=== PATIENT | female | born 1990 | race Caucasian/White ===

== ENCOUNTER 2016-08-10 16:37 | Emergency (ER) | payer MEDICAID ==
--- NOTE | 2016-08-10 16:54 | ER Document Report ---
ED Medical Screen (RME) - General Stated Complaint: VOMITING,ABDOMINAL PAIN Time seen by provider: 16:49 Mode of Arrival: Ambulatory Information source: Patient Notes: 26-year-old female that is 19 weeks started vomiting 4 since 7 AM, felt gas like pain 4 hours after eating at home, the mushrooms smelled funny. did not get sick. No diarrhea. Pain is epigastric and lower pelvis. No dysuria. No fever or chills. She does not think this vomiting is related to the . Cholecystectomy 3 years ago. Some low back discomfort. TRAVEL OUTSIDE OF THE [place] IN LAST 30 DAYS: No - Related Data Allergies/Adverse Reactions: No Known Allergies Allergy (Unverified 05/12/13 23:39) Past Medical History Neurological Medical History: Reports: Hx Seizures GI Medical History: Reports: Hx Gastroesophageal Reflux Disease Past Surgical History: Denies: Hx Hysterectomy - Immunizations Hx Diphtheria, Pertussis, Tetanus Vaccination: Yes Physical Exam - Vital signs Vitals: Temp Pulse Resp BP Pulse Ox 97.8 F 100 20 126/70 H 100 08/10/16 16:45 08/10/16 16:45 08/10/16 16:45 08/10/16 16:45 08/10/16 16:45 Course - Vital Signs Vital signs: Temp Pulse Resp BP Pulse Ox 97.8 F 100 20 126/70 H 100 08/10/16 16:45 08/10/16 16:45 08/10/16 16:45 08/10/16 16:45 08/10/16 16:45
[2016-08-10] MEDS ORDERED: NORMAL SALINE 1000 ML 1,000 ML IV ONE (16:55)
[2016-08-10] MEDS ORDERED: METOCLOPRAMIDE HCL INJ/PF 10 MG/2 ML SDV IV ONE ×2 (16:55→19:42)
[2016-08-10] MEDS ORDERED: DIPHENHYDRAMINE HCL 50 MG/ML VIAL IV ONE ×2 (16:55→19:42)
--- NOTE | 2016-08-10 18:10 | ER Document Report ---
ED GI/ - General Chief Complaint: Nausea/Vomiting Stated Complaint: VOMITING,ABDOMINAL PAIN Time seen by provider: 18:08 Mode of Arrival: Ambulatory Information source: Patient Notes: This is a 26-year-old female 4 para 1, 2 miscarriages, 19 weeks . She presents to the emergency room with several episodes of nausea and vomiting since 7 AM. Patient states she last ate last night. She denies any abdominal pain. She denies fever, chills, cough. The patient does state she's got some mild abdominal cramping. TRAVEL OUTSIDE OF THE [place] IN LAST 30 DAYS: No - HPI Patient complains to provider of: Onset: This morning Timing/Duration: Gradual Quality of pain: Cramping Severity at maximum: Mild Severity in ED: Mild Pain Level: Denies Context: Location: No: Chest pain, Epigastric, LUQ, LLQ, RUQ, RLQ, Left flank, Right flank, Low back, Suprapubic, Pelvis, Vaginal, Vulvar, Rectal, Other Vaginal bleeding (Compared to normal period): None OB ultrasound done: Yes vitamins taken: No Sexual history: Inactive Associated symptoms: denies: Chest pain, Fever, Hematuria, Shortness of breath Exacerbated by: Denies Relieved by: Denies Similar symptoms previously: Yes Recently seen / treated by doctor: Yes - Related Data Allergies/Adverse Reactions: No Known Allergies Allergy (Unverified 05/12/13 23:39) Past Medical History - General Information source: Patient - Social History Smoking Status: Never Smoker Cigarette use (# per day): No Chew tobacco use (# tins/day): No Smoking Education Provided: No Frequency of alcohol use: None Drug Abuse: None Lives with: Family Family History: None Patient has suicidal ideation: No Patient has homicidal ideation: No - Medical History Medical History: Negative GI Medical History: Reports: Hx Gastroesophageal Reflux Disease Surgical Hx: Negative Past Surgical History: Denies: Hx Hysterectomy - Immunizations Hx Diphtheria, Pertussis, Tetanus Vaccination: Yes Review of Systems - Review of Systems Constitutional: denies: Chills, Fever EENT: No symptoms reported Cardiovascular: No symptoms reported Respiratory: No symptoms reported Gastrointestinal: See HPI Genitourinary: No symptoms reported Female Genitourinary: No symptoms reported Musculoskeletal: No symptoms reported Skin: No symptoms reported Hematologic/Lymphatic: No symptoms reported Neurological/Psychological: No symptoms reported Physical Exam - Vital signs Vitals: Temp Pulse Resp BP Pulse Ox 97.8 F 100 20 126/70 H 100 08/10/16 16:45 08/10/16 16:45 08/10/16 16:45 08/10/16 16:45 08/10/16 16:45 Notes: Physical exam: GENERAL: When he 6-year-old female, alert and oriented 3, no acute distress. HEAD: Atraumatic, normocephalic. EYES: Pupils equal round and reactive to light, extraocular movements intact, sclera anicteric, conjunctiva are normal. ENT: TMs normal, nares patent, oropharynx clear without exudates. Moist mucous membranes. NECK: Normal range of motion, supple without lymphadenopathy or JVD. LUNGS: Breath sounds clear to auscultation bilaterally and equal. No wheezes rales or rhonchi. HEART: Regular rate and rhythm without murmurs, rubs or gallops. ABDOMEN: Soft, nontender, consistent with 19 weeks gestation, normoactive bowel sounds. No guarding, no rebound. No masses appreciated. EXTREMITIES: Normal range of motion, no pitting or edema. No clubbing or cyanosis. NEUROLOGICAL: Cranial nerves II through XII grossly intact. Normal speech, normal gait. PSYCH: Normal mood, normal affect. SKIN: Warm, Dry, normal turgor, no rashes or lesions noted. Course - Re-evaluation Re-evalutation: 08/10/16 23:02 Patient treated with IV fluids, IV Reglan, IV Benadryl. She was given a GI cocktail. She does feel better. She doesn't appointment with her OB doctor tomorrow. - Vital Signs Vital signs: Temp Pulse Resp BP Pulse Ox 97.8 F 100 20 126/70 H 100 08/10/16 16:45 08/10/16 16:45 08/10/16 16:45 08/10/16 16:45 08/10/16 16:45 - Laboratory Result Diagrams: 08/10/16 18:49 08/10/16 18:49 Laboratory results interpreted by me: 08/10/16 08/10/16 18:49 20:15 RDW 14.8 H Plt Count 124 L Seg Neutrophils % 90.0 H Lymphocytes % 6.8 L Monocytes % 2.5 L Urine Glucose (UA) >=500 H Urine Ketones 20 H Urine Ascorbic Acid 40 H - Diagnostic Test Radiology reviewed: Image reviewed, Reports reviewed - Ultrasound shows viable intrauterine at 19 weeks. Discharge - Discharge Clinical Impression: Hyperemesis gravidarum Condition: Stable Disposition: HOME, SELF-CARE Instructions: Antinausea Medication ([facility]), Reglan ([facility]) Additional Instructions: Recommendations: Drink small, frequent meals and advanced dilated is tolerated. Vitamin B 6 (Unisom) is sometimes good for nausea related to . Abdomen and kiki products sometimes help as well. Take the Reglan as needed for nausea. As far as her heartburn: Chema's, Rolaids, Maalox or Mylanta are acceptable. Continue with Zantac. Follow-up with your OB doctor tomorrow Return to the emergency room for worsening discomfort. Prescriptions: Metoclopramide HCl [Reglan 10 mg Tablet] 1 - 2 tab PO ASDIR PRN #25 tablet PRN Reason: Referrals: DOROTA WING MD [Primary Care Provider] - Follow up tomorrow
[2016-08-10] MEDS ORDERED: DEXTROSE 5%-NORMAL SALINE 1,000 ML IV ONE (18:36)
[2016-08-10] MEDS ORDERED: DEXTROSE 5%-1/2 NORMAL SALINE 1,000 ML IV ONE (18:37)
[2016-08-10 18:59] LABS: ABSOLUTE LYMPHOCYTES (AUTO) 0.5 10^3/uL (0.5-4.7); ABSOLUTE MONOCYTES (AUTO) 0.2 10^3/uL (0.1-1.4); BASOPHILS % (AUTO) 0.7 % (0-2); HEMATOCRIT 37.2 % (36.0-47.0); HEMOGLOBIN 12.9 g/dL (12.0-15.5); HGB HCT DIFFERENCE 1.5; LYMPHOCYTES % (AUTO) 6.8 % (13-45); MEAN CORPUSCULAR HEMOGLOBIN 29.2 pg (27.0-33.4); MEAN CORPUSCULAR HGB CONC 34.8 g/dL (32.0-36.0); MEAN CORPUSCULAR VOLUME 84 fl (80-97); MONOCYTES % (AUTO) 2.5 % (3-13); RED BLOOD COUNT 4.43 10^6/uL (3.72-5.28); RED CELL DISTRIBUTION WIDTH 14.8 % (11.5-14.0); WHITE BLOOD COUNT 6.7 10^3/uL (4.0-10.5)
[2016-08-10 19:29] LABS: ALANINE AMINOTRANSFERASE 21 U/L (9-52); ALBUMIN 3.6 g/dL (3.5-5.0); ALKALINE PHOSPHATASE 65 U/L (38-126); ANION GAP 15 (5-19); ASPARTATE AMINO TRANSFERASE 20 U/L (14-36); BILIRUBIN,TOTAL 0.7 mg/dL (0.2-1.3); BLOOD UREA NITROGEN 10 mg/dL (7-20); CALCIUM 8.7 mg/dL (8.4-10.2); CARBON DIOXIDE 22 mmol/L (22-30); CHLORIDE 103 mmol/L (98-107); CREATININE RESULT 0.52 mg/dL (0.52-1.25); GLUCOSE 87 mg/dL (75-110); POTASSIUM 3.7 mmol/L (3.6-5.0); SODIUM 139.5 mmol/L (137-145); TOTAL PROTEIN 6.5 g/dL (6.3-8.2)
[2016-08-10] MEDS ORDERED: LIDOCAINE 2% VISCOUS SOLN 20 ML UDCUP PO ONE (19:43)
[2016-08-10] MEDS ORDERED: MAG HYDROX/AL HYDROX/SIMETH SUSP 30 ML UDCUP PO ONE (19:43)
[2016-08-10 21:59] LABS: APPEARANCE,URINE SLIGHTLY-CLOUDY; BILIRUBIN,URINE NEGATIVE (NEGATIVE); GLUCOSE, URINE >=500 mg/dL (NEGATIVE); KETONES,URINE 20 mg/dL (NEGATIVE); LEUKOCYTE ESTERASE,URINE NEGATIVE (NEGATIVE); NITRITE,URINE NEGATIVE (NEGATIVE); PROTEIN,URINE NEGATIVE (NEGATIVE); URINE SPECIFIC GRAVITY 1.025; UROBILINOGEN,URINE NEGATIVE mg/dL (<2.0)
[2016-08-10] MEDS ORDERED: METOCLOPRAMIDE HCL 10 MG TABLET PO ONE (22:59)
[2016-08-10 23:06] VITALS: BP 116/67
== END 2016-08-10 23:05 | disposition home or self-care (01) ==
LOC: ER 16:37
DX: O21.0 Mild hyperemesis gravidarum (principal); Z3A.19 19 weeks gestation of pregnancy
CPT/HCPCS: 99284; 96361; 96375; 96365; 36415; 87086; 85025; 80053; 81001; 76805; J1200; J3490 ×3; J2765

== ENCOUNTER 2016-12-29 06:35 | Inpatient (IN) | payer MEDICAID ==
[2016-12-23 11:52] LABS: APPEARANCE,URINE SLIGHTLY-CLOUDY; BILIRUBIN,URINE NEGATIVE (NEGATIVE); GLUCOSE, URINE NEGATIVE (NEGATIVE); KETONES,URINE NEGATIVE (NEGATIVE); LEUKOCYTE ESTERASE,URINE NEGATIVE (NEGATIVE); NITRITE,URINE NEGATIVE (NEGATIVE); PROTEIN,URINE NEGATIVE (NEGATIVE); URINE SPECIFIC GRAVITY 1.011; UROBILINOGEN,URINE NEGATIVE mg/dL (<2.0)
[2016-12-23 11:57] LABS: ABSOLUTE LYMPHOCYTES (AUTO) 2.1 10^3/uL (0.5-4.7); ABSOLUTE MONOCYTES (AUTO) 0.6 10^3/uL (0.1-1.4); ABSOLUTE NEUT (AUTO) 5.2 10^3/uL (1.7-8.2); BASOPHILS % (AUTO) 0.3 % (0-2); EOSINOPHILS % (AUTO) 0.1 % (0-6); HEMATOCRIT 35.4 % (36.0-47.0); HEMOGLOBIN 12.1 g/dL (12.0-15.5); HGB HCT DIFFERENCE 0.9; LYMPHOCYTES % (AUTO) 26.4 % (13-45); MEAN CORPUSCULAR HEMOGLOBIN 28.2 pg (27.0-33.4); MEAN CORPUSCULAR HGB CONC 34.1 g/dL (32.0-36.0); MEAN CORPUSCULAR VOLUME 83 fl (80-97); MONOCYTES % (AUTO) 7.3 % (3-13); RED BLOOD COUNT 4.28 10^6/uL (3.72-5.28); RED CELL DISTRIBUTION WIDTH 14.5 % (11.5-14.0); SEGMENTED NEUTROPHILS % (AUTO) 65.9 % (42-78); WHITE BLOOD COUNT 7.9 10^3/uL (4.0-10.5)
[2016-12-23 12:16] LABS: URINE BARBITURATES SCREEN NEGATIVE; URINE METHADONE SCREEN NEGATIVE; URINE OPIATES LOW NEGATIVE; URINE PHENCYCLIDINE SCREEN NEGATIVE
[~2016-12-29 06:35] MED LIST: CEFAZOLIN 1 GM/D5W RTU 1 GM/50 ML RTUPB IV PRN; LACTATED RINGERS 1000 ML IV PRN; LIDOCAINE 0.5% INJ-PF (5 MG/ML) 50 ML SDV SUBCUT PRN
[2016-12-29] MEDS ORDERED: OXYTOCIN 10 UNIT/ML VIAL ONE (09:24)
[2016-12-29] MEDS ORDERED: KETOROLAC TROMETHAMINE INJ/PF 30 MG/1 ML SDV ONE (09:24)
[2016-12-29] MEDS ORDERED: FENTANYL CITRATE INJ/PF 250 MCG/5 ML AMPULE ONE (09:25)
[2016-12-29] MEDS ORDERED: EPHEDRINE SULFATE INJ 50 MG/1 ML AMPULE ONE (09:25)
[2016-12-29] MEDS ORDERED: ACETAMINOPHEN 100 ML IV ONE (09:25)
[2016-12-29] MEDS ORDERED: ONDANSETRON HCL INJ/PF 4 MG/2 ML SDV ONE ×2 (09:25→15:10)
[2016-12-29] MEDS ORDERED: OXYTOCIN/NORMAL SALINE 20 UNIT/1,000 ML RTUINJ ONE (09:25)
[2016-12-29] MEDS ORDERED: MIDAZOLAM 2 MG/2 ML INJ ONE (09:25)
[2016-12-29] MEDS ORDERED: FENTANYL CITRATE INJ/PF 100 MCG/2 ML AMPUL ONE (09:25)
[2016-12-29] MEDS ORDERED: MEASLES,MUMPS&RUBELLA VACC/PF 0.5 ML VIAL SUBCUT PRN (09:33)
[2016-12-29] MEDS ORDERED: RINGERS SOLUTION,LACTATED 1,000 ML IV PRN (09:33)
[2016-12-29] MEDS ORDERED: OXYTOCIN/NORMAL SALINE 1,000 ML IV PRN (09:33)
[2016-12-29] MEDS ORDERED: OXYCODONE-ACETAMINOPHEN 5-325 MG TABLET PO PRN (09:33)
[2016-12-29] MEDS ORDERED: HYDROMORPHONE HCL INJ/PF 2 MG/ML AMPULE IV PRN (09:33)
[2016-12-29] MEDS ORDERED: PROMETHAZINE HCL INJ 25 MG/1 ML VIAL IV PRN (09:33)
[2016-12-29] MEDS ORDERED: ACETAMINOPHEN 100 ML IV PRN (09:33)
[2016-12-29] MEDS ORDERED: ACETAMINOPHEN 325 MG TABLET PO PRN (09:33)
[2016-12-29] MEDS ORDERED: DIPH/PERTUSS(ACELL)/TETANUS VAC/PF 0.5 ML SYR (>=10YO) IM PRN (09:33)
[2016-12-29] MEDS ORDERED: FENTANYL CITRATE INJ/PF 100 MCG/2 ML AMPUL IV PRN (10:05)
[2016-12-29] MEDS ORDERED: ONDANSETRON HCL INJ/PF 4 MG/2 ML SDV IV PRN (10:05)
[2016-12-29] MEDS ORDERED: MEPERIDINE HCL/PF INJ 25 MG/1 ML DISP.SYRIN IV PRN (10:05)
[2016-12-29] MEDS ORDERED: DIPHENHYDRAMINE HCL 50 MG/ML VIAL IV PRN (10:05)
--- NOTE | 2016-12-29 10:57 | PDOC DELIVERY SUMMARY ---
Delivery Summary - Maternal Hx : IV Hx # Term Pregnancies: 1 Hx Total # of Abortions (Sponateous & Elective): 2 LUCIA: 01/05/17 Gestational Age: 39 Ruptured Membranes: AROM Fluids: Clear - Delivery Presentation: Vertex Heart Rate Monitoring: Done Pre-Operatively Support Person Present: Yes Location: LD : Scheduled Placenta: Within Normal Limits Delivery of Placenta Date: 12/29/16 Delivery of Placenta Time: 10:15 - Medications Type of Anesthesia:: Spinal - Infant Assess and Care Baby 1 Male Delivery of Date: 12/29/16 Delivery of Time: 10:14 at 1 minute: 8 at 5 minutes: 9 Preprinted Number On Band: [id number] Infant Skin to Skin: No Mode of Transport: [facility] Weight: 3675 kg - Delivery Personnel Nursery RN: TRENT ONEILL RN: MATT PERALTA RN: EVA POLANCO MD: SANDI GAMING Applications Support Analyst: ANDREW RODRIGUEZ
--- NOTE | 2016-12-29 11:03 | Operative Report ---
Operative Report DATE OF SURGERY: 12/29/16 PREOPERATIVE DIAGNOSIS: Repeat to prevent risk of uterine rupture. Right ovarian cyst POSTOPERATIVE DIAGNOSIS: Same OPERATION: Repeat via low transverse uterine incision drainage of right ovarian cyst. SURGEON: SANDI GAMING ANESTHESIA: Spinal TISSUE REMOVED OR ALTERED: Drainage of right ovarian cyst placenta, COMPLICATIONS: None ESTIMATED BLOOD LOSS: 250 cc INTRAOPERATIVE FINDINGS: Normal uterus and tubes. Simple right ovarian cyst. PROCEDURE: Patient was taken to the OR and placed in supine position after her spinal anesthesia. She is prepared and draped in sterile fashion. Templeton was placed for drainage of the bladder. Low transverse incision was made and carried down the level of the fascia. The fascial incision was made with knife and extended bilaterally with curved Veliz scissors. The fascia was off the rectus muscles using sharp and blunt dissection. The rectus muscles are in the midline. The peritoneum was entered without incident. Bladder blade was placed in uterine segment was identified. A low transverse incision was made creating a bladder flap. Bladder blade was placed low transverse uterine incision was made with the csafe knife and extended with fingertips. The baby was delivered with some fundal pressure and assistance of kiwi vac with pressure in the green. Mouth and nose were suctioned free. The cord is doubly clamped and cut. Baby is passed off to the route returner in attendance. The placenta was manually extracted with trailing membranes. The uterus was externalized wrapped in a moist lap sponge. Uterine contents wiped free. Uterus was closed with a running locking layer of 0 chromic suture using the second layer to imbricate the first completing a double layer closure of the uterus. The serosa was closed with a running 2-0 chromic stitch. A window was removed from the right ovarian cyst. The internal herrera were smooth. The pelvis was irrigated and suctioned free of fluid the uterus was replaced in the abdomen. The abdominal wall peritoneum was closed with running 2-0 chromic stitch. Fascia was closed with a running 0 Vicryl in 2 segments. Swetha's layer was brought together with 0 plain gut stitch and the skin was closed with running subcuticular 4-0 undyed Vicryl stitch. The wound was dressed mother and baby did well.
[2016-12-29] MEDS ORDERED: HYDROMORPHONE HCL INJ/PF 2 MG/ML AMPULE ONE (11:56)
[2016-12-29] MEDS ORDERED: IBUPROFEN 800 MG TABLET PO SCH (12:00)
[2016-12-29] MEDS: DOCUSATE SODIUM 100 MG CAPSULE PO SCH ×2 (12:24→17:28)
[2016-12-29] MEDS: PRENATAL VITAMIN W-O CA NO5/FE FUMARATE/FA CAPSULE PO SCH (12:24)
[2016-12-29] MEDS: OXYCODONE-ACETAMINOPHEN 5-325 MG TABLET PO PRN ×3 (14:21→23:30)
[2016-12-29] MEDS ORDERED: KETOROLAC TROMETHAMINE INJ/PF 30 MG/1 ML SDV IV SCH (18:00)
[2016-12-30] MEDS: IBUPROFEN 800 MG TABLET PO SCH ×5 (00:48→23:15)
[2016-12-30] MEDS: SIMETHICONE 80 MG TAB.CHEW PO PRN ×2 (00:54→11:51)
[2016-12-30] MEDS: OXYCODONE-ACETAMINOPHEN 5-325 MG TABLET PO PRN ×4 (04:03→20:52)
[2016-12-30 07:35] LABS: HEMATOCRIT 29.1 % (36.0-47.0); HEMOGLOBIN 9.8 g/dL (12.0-15.5); HGB HCT DIFFERENCE 0.3; MEAN CORPUSCULAR HEMOGLOBIN 28.2 pg (27.0-33.4); MEAN CORPUSCULAR HGB CONC 33.5 g/dL (32.0-36.0); MEAN CORPUSCULAR VOLUME 84 fl (80-97); RED BLOOD COUNT 3.46 10^6/uL (3.72-5.28); RED CELL DISTRIBUTION WIDTH 14.5 % (11.5-14.0); WHITE BLOOD COUNT 7.7 10^3/uL (4.0-10.5)
--- NOTE | 2016-12-30 09:53 | PDOC PROGRESS REPORT ---
Subjective-OB Subjective: Post Delivery Day: 26 year old. Denies any needs at this time Doing well, OOB to BR and walking in halls, breast feeding, pain under control, diet taken well Physical Exam (OB) Vital Signs: Temp Pulse Resp BP Pulse Ox 97.5 F 84 16 121/77 100 12/30/16 07:56 12/30/16 07:56 12/30/16 07:56 12/30/16 07:56 12/30/16 07:56 Intake & Output 12/29/16 12/30/16 12/31/16 06:59 06:59 06:59 Intake Total 1900 Output Total 2430 Balance -530 Weight 125 kg - Dressing Removed: No Incision: Dressing - Lochia Lochia Amount: Scant < 10 ml Lochia Color: Rubra/Red - Abdomen Description: Tender, Soft Hernia Present: No Fundal Description: Firm, Midline Fundal Height: u/u - u/2 Objective-Diagnostic Laboratory: 12/30/16 07:25 12/30/16 07:25 WBC 7.7 RBC 3.46 L Hgb 9.8 L Hct 29.1 L MCV 84 MCH 28.2 MCHC 33.5 RDW 14.5 H Plt Count 100 L Assessment and Plan(PN) - Assessment and Plan (1) Delivery by emergency caesarean section Is this a current diagnosis for this admission?: Yes (2) Failed induction of labor Qualifiers: Failed induction of labor type: medical Qualified Code(s): O61.0 - Failed medical induction of labor Is this a current diagnosis for this admission?: Yes (3) Anemia Qualifiers: Anemia type: iron deficiency Is this a current diagnosis for this admission?: Yes - Time Spent with Patient Time with patient: Less than 15 minutes Medications reviewed and adjusted accordingly: Yes - Disposition Anticipated Discharge: Home Within: within 24 hours
[2016-12-30] MEDS: PRENATAL VITAMIN W-O CA NO5/FE FUMARATE/FA CAPSULE PO SCH (10:50)
[2016-12-30] MEDS: DOCUSATE SODIUM 100 MG CAPSULE PO SCH ×2 (10:50→18:07)
[2016-12-30] MEDS: ONDANSETRON HCL 8 MG TABLET PO PRN ×2 (12:15→20:53)
[2016-12-31] MEDS: OXYCODONE-ACETAMINOPHEN 5-325 MG TABLET PO PRN ×3 (03:56→15:07)
[2016-12-31] MEDS: IBUPROFEN 800 MG TABLET PO SCH ×2 (05:14→12:09)
[2016-12-31] MEDS: DOCUSATE SODIUM 100 MG CAPSULE PO SCH (09:21)
[2016-12-31] MEDS: ONDANSETRON HCL 8 MG TABLET PO PRN (09:21)
[2016-12-31] MEDS: PRENATAL VITAMIN W-O CA NO5/FE FUMARATE/FA CAPSULE PO SCH (09:21)
[2016-12-31 09:50] LABS: HEMATOCRIT 27.7 % (36.0-47.0); HEMOGLOBIN 9.2 g/dL (12.0-15.5); HGB HCT DIFFERENCE -0.1; MEAN CORPUSCULAR HEMOGLOBIN 28.4 pg (27.0-33.4); MEAN CORPUSCULAR HGB CONC 33.2 g/dL (32.0-36.0); MEAN CORPUSCULAR VOLUME 85 fl (80-97); RED BLOOD COUNT 3.24 10^6/uL (3.72-5.28); RED CELL DISTRIBUTION WIDTH 14.9 % (11.5-14.0); WHITE BLOOD COUNT 7.9 10^3/uL (4.0-10.5)
--- NOTE | 2016-12-31 13:47 | PDOC DISCHARGE SUMMARY ---
Final Diagnosis Discharge Date: 12/31/16 - Final Diagnosis (1) Status post repeat low transverse section Is this a current diagnosis for this admission?: Yes (2) Ovarian cyst Is this a current diagnosis for this admission?: Yes (3) Is this a current diagnosis for this admission?: Yes (4) Anemia Is this a current diagnosis for this admission?: Yes Discharge Data - Discharge Medication Home Medications: Vit#96/Ferrous Fum/FA [ Tablet] 1 tab PO DAILY 03/24/15 Ranitidine HCl 2 tab PO DAILY 03/24/15 Docusate Sodium [Colace 100 mg Capsule] 100 mg PO BID #60 capsule 12/31/16 Ferrous Sulfate [Feosol 325 mg Tablet] 325 mg PO BID #60 tablet 12/31/16 Ibuprofen [Motrin 800 mg Tablet] 800 mg PO Q8HP PRN #90 tablet 12/31/16 Oxycodone HCl/Acetaminophen [Percocet 5-325 mg Tablet] 1 tab PO Q4HP PRN #30 tablet 12/31/16 Reason(s) for Admission: Ceasarean Section-Repeat Procedures: NST, Ultrasound Intrapartum Procedure(s): : Low Cervical, Transverse, Other - drainage of right ovarian cyst - Diagnosis Test Laboratory: Temp Pulse Resp BP Pulse Ox 97.7 F 91 20 113/61 100 12/31/16 08:28 12/31/16 08:28 12/31/16 08:28 12/31/16 08:28 12/31/16 08:28 12/23/16 12/23/16 12/30/16 10:10 11:19 07:25 RBC 4.28 3.46 L Hgb 12.1 9.8 L Hct 35.4 L 29.1 L Urine Opiates Screen NEGATIVE 12/31/16 09:44 RBC 3.24 L Hgb 9.2 L Hct 27.7 L Urine Opiates Screen - Discharge information/Instructions Discharge Activity: Activity As Tolerated, Balance Activity w/Rest, No Driving, No Lifting Over 10 Pounds, No Lifting/Push/Pulling, Pelvic Rest, Slowly Increase Activity, No tub bath, Walk Frequently Discharge Diet: As Tolerated, Regular Disposition: HOME, SELF-CARE Follow up with: [facility] in: 1, Weeks - incision check
[2016-12-31 15:28] VITALS: BP 124/70
--- NOTE | 2017-01-11 13:49 | Delivery Summary ---
Del Sum A-C Datetime Report Generated by CPN: 01/11/2017 13:48 DELIVERY PERSONNEL DELIVERY PERSONNEL: [phone] ASSESSMENT BABY A Skin to Skin: Yes
== END 2016-12-31 17:00 | disposition home or self-care (01) | DRG 766 ==
LOC: 2S 06:35
PROVIDERS: ADMIT Obstetrics & Gynecology; ATTEND Obstetrics & Gynecology
PROC: 0UB00ZZ Excision of Right Ovary, Open Approach (ICD-10-PCS; 2016-12-29)
PROC: 4A1HXCZ Monitoring of Products of Conception, Cardiac Rate, External Approach (ICD-10-PCS; 2016-12-29)
PROC: 10D00Z1 Extraction of Products of Conception, Low, Open Approach (ICD-10-PCS; principal; 2016-12-29 09:30)
DX: O61.0 Failed medical induction of labor (principal); O34.211 Maternal care for low transverse scar from previous cesarean delivery; O34.83 Maternal care for other abnormalities of pelvic organs, third trimester; N83.201 Unspecified ovarian cyst, right side; O99.02 Anemia complicating childbirth; D50.9 Iron deficiency anemia, unspecified; Z90.49 Acquired absence of other specified parts of digestive tract; Z87.891 Personal history of nicotine dependence; Z37.0 Single live birth
CPT/HCPCS: 1961; 36415; 80307; 81001; 85025; 85027; 86850; 86900; 86901; 88305; 94799; J0131; J0690; J1170; J1885; J2250; J2405; J2590; J3010; J3490; J7120; S0119

== ENCOUNTER → 2017-12-20 | Outpatient (CLI) | payer OTHER ==
--- NOTE | 2017-12-21 01:38 | RADIOLOGY REPORT (SQ) ---
EXAM DESCRIPTION: U/S NON-OB PELVIS TV W/O DOP COMPLETED DATE/TIME: 12/20/2017 5:22 pm REASON FOR STUDY: EVAL FOR IUD PLACEMENT Z34.91 ENCNTR FOR SUPRVSN OF NORMAL PREG, UNSP, FIRST TRIM ES COMPARISON: None. TECHNIQUE: Dynamic and static grayscale images acquired of the pelvis via transvaginal approach and recorded on PACS. Additional selected color Doppler and spectral images recorded. LIMITATIONS: None. FINDINGS: UTERUS: Contour normal. No mass. ENDOMETRIAL STRIPE: No focal thickening or mass. Subtle linear echogenic artifact suggests an IUD wh ich looks grossly appropriate. CERVIX: No nabothian cysts. RIGHT OVARY : 4 cm relatively simple appearing paraovarian cyst. LEFT OVARY : Normal size. No worrisome masses. Normal arterial vascular flow without evidence for tor linsey. FREE FLUID: None noted. OTHER: No other significant finding. MEASUREMENTS: UTERUS: 11 x 4 x 4 cm ENDOMETRIAL STRIPE: 3.1 mm RIGHT OVARY: 4 x 3 x 3 cm LEFT OVARY: 2 x 1 x 2 cm. IMPRESSION: 1. Echogenic artifact in the endometrial cavity suggests IUD in grossly appropriate loc ation. 2. Simple appearing right paraovarian cyst, doubtful clinical significance unless the patient has pelvic pain. TECHNICAL DOCUMENTATION: JOB ID: [id number] [employer]- All Rights Reserved Rev-12/17 Reading location - IP/workstation name: [email or web address]
== END ==
LOC: RAD 16:12
PROVIDERS: ATTEND Nurse Practitioner Women's Health
DX: Z34.91 Encounter for supervision of normal pregnancy, unspecified, first trimester (principal)
CPT/HCPCS: 76830

== ENCOUNTER 2018-03-01 19:51 | Emergency (ER) | payer OTHER ==
[2018-03-01 20:48] VITALS: BP 135/87
[2018-03-01 21:18] LABS: APPEARANCE,URINE CLEAR; BILIRUBIN,URINE NEGATIVE (NEGATIVE); COLOR,URINE YELLOW; GLUCOSE, URINE NEGATIVE (NEGATIVE); KETONES,URINE NEGATIVE (NEGATIVE); LEUKOCYTE ESTERASE,URINE TRACE (NEGATIVE); NITRITE,URINE NEGATIVE (NEGATIVE); PROTEIN,URINE NEGATIVE (NEGATIVE); URINE SPECIFIC GRAVITY 1.012; UROBILINOGEN,URINE NEGATIVE mg/dL (<2.0)
[2018-03-01] MEDS ORDERED: NITROFURANTOIN MONOHYD/M-CRYST 100 MG CAPSULE PO ONE (21:31)
--- NOTE | 2018-03-01 21:35 | ER Document Report ---
ED General - General Chief Complaint: Urinary Problem Stated Complaint: STOMACH PAIN Time Seen by Provider: 03/01/18 21:24 TRAVEL OUTSIDE OF THE [place] IN LAST 30 DAYS: No - HPI Notes: 28-year-old female presents with possible UTI. She describes several days of frequency urgency and dysuria. No abdominal pain, no back pain. No fever. No history of frequent UTIs. Gradual onset, nonradiating. No other modifying factors, no other associated symptoms, no other provocative or palliative factors. - Related Data Allergies/Adverse Reactions: No Known Allergies Allergy (Unverified 12/23/16 11:43) Past Medical History - Social History Smoking Status: Smoker,Current Status Unk Family History: None - Medical History Medical History: Negative - Past Medical History Cardiac Medical History: Denies: Hx Hypertension, Hx Pulmonary Embolism, Hx Heart Murmur Pulmonary Medical History: Denies: Hx Asthma, Hx Sleep Apnea, Hx Tuberculosis Neurological Medical History: Denies: Hx Cerebrovascular Accident, Hx Seizures Endocrine Medical History: Denies: Hx Hyperthyroidism, Hx Hypothyroidism Renal/ Medical History: Reports: Hx Ovarian Cysts. Denies: Hx Kidney Stones, Hx Pelvic Inflammatory Disease Malignancy Medical History: Denies: Hx Breast Cancer, Hx Cervical Cancer, Hx Ovarian Cancer GI Medical History: Reports: Hx Gastroesophageal Reflux Disease. Denies: Hx Hiatal Hernia, Hx Ulcer Musculoskeletal Medical History: Denies Hx Fibromyalgia Psychiatric Medical History: Reports: Hx Depression - undiagnosed Denies: Hx Bipolar Disorder, Hx Post Traumatic Stress Disorder, Hx Schizophrenia Traumatic Medical History: Denies: Hx Fractures Infectious Medical History: Denies: Hx HIV Past Surgical History: Reports: Hx Cholecystectomy. Denies: Hx Hysterectomy - Immunizations Hx Diphtheria, Pertussis, Tetanus Vaccination: Yes Review of Systems - Review of Systems Notes: Review of systems as in history of present illness, otherwise no significant headache, chest pain, abdominal pain. Physical Exam - Vital signs Vitals: Temp Pulse Resp BP Pulse Ox 98.7 F 82 16 135/87 H 100 03/01/18 20:44 03/01/18 20:44 03/01/18 20:44 03/01/18 20:44 03/01/18 20:44 - Notes Notes: General: Well developed . HEENT: Normocephalic, atraumatic. Pupils equal round reactive to light. No JVD. Chest: No trauma. Respiratory: Good air exchange, normal excursion. Cardiac: Regular rhythm. No murmurs or gallops. Abdomen: Soft, benign. Nondistended. Nontender. Back: No asymmetry or gross abnormality. Motor: Grossly normal power and tone. Neurologic: Alert, nonfocal. Cranial nerves II-12 are intact. Sensation intact. Vascular: Well perfused. Normal peripheral pulses. Skin: No petechiae or purpura. Course - Re-evaluation Re-evalutation: 03/01/18 21:33 Well-appearing female the after mentioned symptoms, likely UTI. Urinalysis does not report bacteria, has trace LE and WBCs. However, pretest probability is exceptionally high and will treat. UPT is negative. Given a prescription for both Macrobid and Keflex to use one or the other depending on cost. Will take [id number] Pyridium. - Vital Signs Vital signs: Temp Pulse Resp BP Pulse Ox 98.7 F 82 16 135/87 H 100 03/01/18 20:44 03/01/18 20:44 03/01/18 20:44 03/01/18 20:44 03/01/18 20:44 - Laboratory Laboratory results interpreted by me: 03/01/18 20:40 Ur Leukocyte Esterase TRACE H Discharge - Discharge Clinical Impression: Urinary tract infection Qualifiers: Urinary tract infection type: acute cystitis Hematuria presence: without hematuria Qualified Code(s): N30.00 - Acute cystitis without hematuria Condition: Good Disposition: HOME, SELF-CARE Instructions: Urinary Tract Infection ([facility]) Prescriptions: Cephalexin Monohydrate [Keflex 500 mg Capsule] 500 mg PO Q6H 7 Days #28 capsule Nitrofurantoin Monohyd/M-Cryst [Macrobid 100 mg Capsule] 1 tab PO BID #20 capsule
== END 2018-03-01 21:44 | disposition home or self-care (01) ==
LOC: ER 19:51
DX: N30.00 Acute cystitis without hematuria (principal); R10.9 Unspecified abdominal pain; Z90.49 Acquired absence of other specified parts of digestive tract
CPT/HCPCS: 99284; 81025; 81001; J8499

== ENCOUNTER 2018-08-18 18:02 | Emergency (ER) | payer MEDICAID, OTHER ==
[2018-08-18] MEDS ORDERED: NORMAL SALINE 1000 ML 1,000 ML IV ONE (19:55)
[2018-08-18] MEDS ORDERED: ONDANSETRON HCL INJ/PF 4 MG/2 ML SDV IV ONE ×2 (19:55→21:13)
--- NOTE | 2018-08-18 19:56 | ER Document Report ---
ED Medical Screen (RME) - General Chief Complaint: Flu Symptoms Stated Complaint: VOMITING,DIARRHEA,ABDOMINAL PAIN Time Seen by Provider: 08/18/18 19:55 Mode of Arrival: Ambulatory Information source: Patient Notes: This is a 28-year-old female presents to the emergency room with a 2-day history of nausea, vomiting, diarrhea and stomach cramping. She has had a difficult time holding down fluids today. She denies any fever. She denies any blood in the stool. TRAVEL OUTSIDE OF THE [place] IN LAST 30 DAYS: No - Related Data Allergies/Adverse Reactions: No Known Allergies Allergy (Verified 08/18/18 18:03) Past Medical History - Past Medical History Cardiac Medical History: Denies: Hx Hypertension, Hx Pulmonary Embolism, Hx Heart Murmur Pulmonary Medical History: Denies: Hx Asthma, Hx Sleep Apnea, Hx Tuberculosis Neurological Medical History: Denies: Hx Cerebrovascular Accident, Hx Seizures Endocrine Medical History: Denies: Hx Hyperthyroidism, Hx Hypothyroidism Renal/ Medical History: Reports: Hx Ovarian Cysts. Denies: Hx Kidney Stones, Hx Peritoneal Dialysis, Hx Pelvic Inflammatory Disease Malignancy Medical History: Denies: Hx Breast Cancer, Hx Cervical Cancer, Hx Ovarian Cancer GI Medical History: Reports: Hx Gastroesophageal Reflux Disease. Denies: Hx Hiatal Hernia, Hx Ulcer Musculoskeltal Medical History: Denies Hx Fibromyalgia Psychiatric Medical History: Reports: Hx Depression - undiagnosed Denies: Hx Bipolar Disorder, Hx Post Traumatic Stress Disorder, Hx Schizophrenia Traumatic Medical History: Denies: Hx Fractures Infectious Medical History: Denies: Hx HIV Past Surgical History: Reports: Hx Section - x2, Hx Cholecystectomy. Denies: Hx Hysterectomy - Immunizations Hx Diphtheria, Pertussis, Tetanus Vaccination: Yes Physical Exam - Vital signs Vitals: Temp Pulse Resp BP Pulse Ox 97.5 F 115 H 16 117/87 H 100 08/18/18 18:35 08/18/18 18:35 08/18/18 18:35 08/18/18 18:35 08/18/18 18:35 Course - Vital Signs Vital signs: Temp Pulse Resp BP Pulse Ox 98.5 F 126 H 22 H 131/76 H 100 08/18/18 19:11 08/18/18 19:11 08/18/18 19:11 08/18/18 19:11 08/18/18 19:11
[2018-08-18 20:43] LABS: ABSOLUTE LYMPHOCYTES (AUTO) 0.8 10^3/uL (0.5-4.7); ABSOLUTE MONOCYTES (AUTO) 0.4 10^3/uL (0.1-1.4); ABSOLUTE NEUT (AUTO) 10.7 10^3/uL (1.7-8.2); BASOPHILS % (AUTO) 0.1 % (0-2); HEMATOCRIT 44.5 % (36.0-47.0); HEMOGLOBIN 15.5 g/dL (12.0-15.5); LYMPHOCYTES % (AUTO) 6.4 % (13-45); MEAN CORPUSCULAR HEMOGLOBIN 29.3 pg (27.0-33.4); MEAN CORPUSCULAR HGB CONC 34.9 g/dL (32.0-36.0); MEAN CORPUSCULAR VOLUME 84 fl (80-97); MONOCYTES % (AUTO) 3.5 % (3-13); PLATELET COUNT 189 10^3/uL (150-450); RED BLOOD COUNT 5.29 10^6/uL (3.72-5.28); RED CELL DISTRIBUTION WIDTH 12.7 % (11.5-14.0); TOTAL CELLS COUNTED % (AUTO) 100 %; WHITE BLOOD COUNT 11.8 10^3/uL (4.0-10.5)
[2018-08-18 20:58] LABS: ALANINE AMINOTRANSFERASE 18 U/L (9-52); ALBUMIN 4.9 g/dL (3.5-5.0); ALKALINE PHOSPHATASE 72 U/L (38-126); ANION GAP 13 (5-19); ASPARTATE AMINO TRANSFERASE 21 U/L (14-36); BILIRUBIN,DIRECT 0.2 mg/dL (0.0-0.4); BILIRUBIN,TOTAL 1.3 mg/dL (0.2-1.3); BLOOD UREA NITROGEN 18 mg/dL (7-20); CALCIUM 9.1 mg/dL (8.4-10.2); CARBON DIOXIDE 21 mmol/L (22-30); CHLORIDE 104 mmol/L (98-107); GLUCOSE 110 mg/dL (75-110); LIPASE 58.1 U/L (23-300); POTASSIUM 3.8 mmol/L (3.6-5.0); SODIUM 138.3 mmol/L (137-145); TOTAL PROTEIN 7.7 g/dL (6.3-8.2)
[2018-08-18] MEDS ORDERED: DEXTROSE 5%-LACTATED RINGERS 1,000 ML IV ONE ×2 (21:13→22:22)
[2018-08-18] MEDS ORDERED: MAG HYDROX/AL HYDROX/SIMETH SUSP 30 ML UDCUP PO ONE (21:13)
[2018-08-18] MEDS ORDERED: LIDOCAINE 2% VISCOUS SOLN 20 ML UDCUP PO ONE (21:13)
--- NOTE | 2018-08-18 21:18 | ER Document Report ---
ED General - General Mode of Arrival: Ambulatory Information source: Patient TRAVEL OUTSIDE OF THE [place] IN LAST 30 DAYS: No <HELEN LE - Last Filed: 08/18/18 21:26> <SABINETHERESA - Last Filed: 08/19/18 00:24> - General Chief Complaint: Flu Symptoms Stated Complaint: VOMITING,DIARRHEA,ABDOMINAL PAIN Time Seen by Provider: 08/18/18 19:55 Notes: Patient is a 28-year-old female presenting to the emergency department compla ining of diarrhea, vomiting and abdominal pain. Patient states she developed diarrhea yesterday and began to have bilious vomiting around 0000 today. She reports after the vomiting was onset she developed upper abdominal cramps. She also complains of some diaphoresis and chills. She states she received 4 mg Zofran in triage which has greatly alleviated her symptoms further stating she feels a lot better. Patient is unsure of her LMP, further stating she has a Miriam IUD. (HELEN LE) - Related Data Allergies/Adverse Reactions: No Known Allergies Allergy (Verified 08/18/18 18:03) Past Medical History - General Information source: Patient - Social History Smoking Status: Never Smoker Frequency of alcohol use: None Drug Abuse: None Family History: None Patient has suicidal ideation: No Patient has homicidal ideation: No Renal/ Medical History: Reports: Hx Ovarian Cysts GI Medical History: Reports: Hx Gastroesophageal Reflux Disease Psychiatric Medical History: Reports: Hx Depression - undiagnosed Past Surgical History: Reports: Hx Section - x2, Hx Cholecystectomy - Immunizations Hx Diphtheria, Pertussis, Tetanus Vaccination: Yes <HELEN LE - Last Filed: 08/18/18 21:26> Review of Systems - Review of Systems Constitutional: See HPI, Chills, Diaphoresis EENT: No symptoms reported Cardiovascular: No symptoms reported Respiratory: No symptoms reported Gastrointestinal: See HPI, Abdominal pain, Nausea Genitourinary: No symptoms reported Female Genitourinary: No symptoms reported Musculoskeletal: No symptoms reported Skin: No symptoms reported Hematologic/Lymphatic: No symptoms reported Neurological/Psychological: No symptoms reported -: Yes All other systems reviewed and negative <HELEN LE - Last Filed: 08/18/18 21:26> Physical Exam <HELEN LE - Last Filed: 08/18/18 21:26> - Vital signs Vitals: Temp Pulse Resp BP Pulse Ox 97.5 F 115 H 16 117/87 H 100 08/18/18 18:35 08/18/18 18:35 08/18/18 18:35 08/18/18 18:35 08/18/18 18:35 - Notes Notes: GENERAL: Alert, interacts well. No acute distress. HEAD: Normocephalic, atraumatic. EYES: Pupils equal, round, and reactive to light. Extraocular movements intact. ENT: Oral mucosa moist, tongue midline. NECK: Full range of motion. Supple. Trachea midline. LUNGS: Clear to auscultation bilaterally, no wheezes, rales, or rhonchi. No respiratory distress. HEART: Regular rate and rhythm. No murmurs, gallops, or rubs. ABDOMEN: Soft, epigastric tenderness to palpation. Non-distended. Decreased bowel sounds. EXTREMITIES: Moves all 4 extremities spontaneously. NEUROLOGICAL: Alert and oriented x3. Normal speech. PSYCH: Normal affect, normal mood. SKIN: Warm, dry, normal turgor. No rashes or lesions noted. (HELEN LE) Course - Laboratory Result Diagrams: 08/18/18 20:20 08/18/18 20:20 <HELEN LE - Last Filed: 08/18/18 21:26> - Laboratory Result Diagrams: 08/18/18 20:20 08/18/18 20:20 - EKG Interpretation by Pr EKG shows normal: Sinus rhythm, [place], Intervals, QRS Complexes, ST-T Waves Rate: Normal - 92 [place]/QRS: Left axis deviation, IVCD Heart block present: 1st Degree When compared to previous EKG there are: No significant change <THERESA REGALADO - Last Filed: 08/19/18 00:24> - Re-evaluation Re-evalutation: 08/18/18 22:54 GI cocktail made the epigastric pain better, she was not tender to palpate afterwards. At this time she states the nausea started come back. There is been no diarrhea since she got here. She is starting her third year of IV fluid at this time. 08/19/18 00:21 At this time patient states she feels much better, her nausea is gone after the Reglan. (HTERESA REGALADO) - Vital Signs Vital signs: Temp Pulse Resp BP Pulse Ox 98.5 F 118 H 18 119/84 97 08/18/18 19:49 08/18/18 19:50 08/18/18 23:01 08/18/18 23:01 08/18/18 23:01 - Laboratory Laboratory results interpreted by me: 08/18/18 08/18/18 08/18/18 20:20 20:20 21:40 WBC 11.8 H RBC 5.29 H Seg Neutrophils % 90.0 H Lymphocytes % 6.4 L Absolute Neutrophils 10.7 H Carbon Dioxide 21 L Urine Ketones 80 H Discharge <HELEN LE - Last Filed: 08/18/18 21:26> <THERESA REGALADO - Last Filed: 08/19/18 00:24> - Discharge Clinical Impression: Nausea, vomiting and diarrhea, Epigastric abdominal pain, Tachycardia Bilious vomiting Qualifiers: Nausea presence: with nausea Qualified Code(s): R11.14 - Bilious vomiting Condition: Stable Disposition: HOME, SELF-CARE Additional Instructions: Gastroenteritis; You most likely have gastroenteritis. This is an irritation of the stomach and intestinal tract. It's usually caused by a virus, but can also be caused by bacteria, toxins that cause food poisoning, or excessive alcohol intake. Symptoms may include fever, painful abdominal cramps, nausea, vomiting, and diarrhea. Start with small amounts (two to six ounces) of clear liquids (soft drinks, herb teas, broth, etc). Try to take fluids frequently even if you are vomiting, to prevent dehydration. When liquids are being consumed successfully, advance to small amounts of bland food (mashed potato, toast) for 6 - 12 hours. Gastroenteritis rarely requires medication. It goes away by itself. Use good handwashing so you don't spread germs. Wash underwear in very hot water. If symptoms are severe, talk to the doctor. Call your physician if blood appears in your vomitus or stool, if vomiting lasts longer than 24 hours, if the abdominal pain worsens or becomes localized to one area, or if you develop high fever. Take medications as prescribed for nausea if needed. Drink small sips of cool clear liquids. Get plenty of rest. Follow-up with your primary care provider if not improving. RETURN TO THE EMERGENCY ROOM IF ANY NEW OR WORSENING SYMPTOMS. Prescriptions: Metoclopramide HCl [Reglan 10 mg Tablet] 10 mg PO ASDIR PRN #15 tablet PRN Reason: For Nausea/Vomiting Scribe Attestation: 08/18/18 22:19 I personally performed the services described in the documentation, reviewed and edited the documentation which was dictated to the scribe in my presence, and it accurately records my words and actions. (THERESA REGALADO) Scribe Documentation - Scribe Written by Eme:: Emily Frances, 08/18/2018 21:21 acting as scribe for :: Sabine <HELEN LE - Last Filed: 08/18/18 21:26>
[2018-08-18 22:09] LABS: APPEARANCE,URINE SLIGHTLY-CLOUDY; BILIRUBIN,URINE NEGATIVE (NEGATIVE); COLOR,URINE YELLOW; GLUCOSE, URINE NEGATIVE (NEGATIVE); KETONES,URINE 80 mg/dL (NEGATIVE); LEUKOCYTE ESTERASE,URINE NEGATIVE (NEGATIVE); NITRITE,URINE NEGATIVE (NEGATIVE); PROTEIN,URINE NEGATIVE (NEGATIVE); UROBILINOGEN,URINE NEGATIVE mg/dL (<2.0)
[2018-08-18] MEDS ORDERED: FAMOTIDINE INJ/PF 20 MG/2 ML SDV IV ONE (22:54)
[2018-08-18] MEDS ORDERED: METOCLOPRAMIDE HCL INJ/PF 10 MG/2 ML SDV IV ONE (22:54)
--- NOTE | 2018-08-18 23:08 | EKG REPORT ---
SEVERITY:- ABNORMAL ECG - SINUS RHYTHM FIRST DEGREE AV BLOCK NONSPECIFIC IVCD WITH LAD : Confirmed by: Shannan Vick 18-Aug-2018 23:07:24
[2018-08-19] MEDS ORDERED: ONDANSETRON ODT 4 MG TAB (6 TAB/ER DISP) PO PRN (00:24)
[2018-08-19 00:40] VITALS: BP 105/67
== END 2018-08-19 00:47 | disposition home or self-care (01) ==
LOC: ER 18:02
DX: R11.14 Bilious vomiting (principal); R10.13 Epigastric pain; R00.0 Tachycardia, unspecified; R19.7 Diarrhea, unspecified; R10.9 Unspecified abdominal pain; R10.10 Upper abdominal pain, unspecified; R61 Generalized hyperhidrosis
CPT/HCPCS: 93005; 96376; 99283; 96361; 96374; 96375; 36415; 84702; 83690; 85025; 80053; 81001; 93010; J3490; J2765; J2405; J7030; S0028